=== PATIENT | male | born 1960 | race Caucasian/White ===

== ENCOUNTER 2019-04-14 08:16 | Emergency (ER) | payer BC, OTHER ==
--- NOTE | 2019-04-14 09:18 | EDM.PDOC ---
ED HPI GENERAL MEDICAL PROBLEM - General Chief Complaint: Allergic Reaction Stated Complaint: REACTION TO BUG BITE Time Seen by Provider: 04/14/19 08:45 Source of Information: Reports: Patient History Limitations: Reports: No Limitations - History of Present Illness INITIAL COMMENTS - FREE TEXT/NARRATIVE: 51-year-old male concerned that he may be having an allergic reaction to bee stings or bug bite. [place], [place] some calisthenics when he felt his lower lip becoming numb and started to swell slightly, and felt some numbness and stinging on his left buttock. 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 He has no shortness of breath, tongue swelling or mucosal swelling. He feels off, lightheaded but no specific symptoms other than the lower lip swelling and the bite on his buttock. Onset: Sudden Duration: Hour(s): (1 hour ago) Location: Reports: Face, Lower Extremity, Left Associated Symptoms: Reports: Malaise, Nausea/Vomiting, Weakness. Denies: Confusion, Chest Pain, Cough, Diaphoresis, Fever/Chills, Headaches, Shortness of Breath (Mild nausea) - Related Data Allergies Allergy/AdvReac Type Severity Reaction Status Date / Time Sulfa (Sulfonamide Allergy Rash Verified 04/14/19 08:43 Antibiotics) Home Meds: Home Meds NK [No Known Home Meds] 04/14/19 [History] Past Medical History Musculoskeletal History: Reports: Arthritis Oncologic (Cancer) History: Reports: Leukemia Social & Family History - Tobacco Use Smoking Status *Q: Never Smoker - Caffeine Use Caffeine Use: Reports: None - Recreational Drug Use Recreational Drug Use: No ED ROS ALLERGIC REACTION - Review of Systems Review Of Systems: See Below Constitutional: Reports: Malaise. Denies: Fever, Chills HEENT: Reports: Other (Lower lip is swollen) Respiratory: Denies: Shortness of Breath, Cough Cardiovascular: Denies: Chest Pain GI/Abdominal: Reports: Nausea. Denies: Abdominal Pain, Vomiting Skin: Reports: Erythema (Some erythema on the left buttock after a bee sting or bug bite) Neurological: Reports: Dizziness. Denies: Headache, Change in Speech, Gait Disturbance ED EXAM GENERAL NO PERIP PULSE - Physical Exam Exam: See Below Exam Limited By: No Limitations General Appearance: Alert, No Apparent Distress Eye Exam: Bilateral Eye: Normal Inspection Throat/Mouth: Normal Inspection, Other (Only physical finding is some very slight edema of the lower lip bilaterally, slightly worse on the left.) Respiratory/Chest: No Respiratory Distress, Lungs Clear Cardiovascular: Regular Rate, Rhythm Extremities: Normal Inspection. No: Pedal Edema Skin Exam: Other (Patient has a 3 x 5 cm macular erythematous area on the left buttock with what appears to be a very tiny central sting area) Course - Vital Signs Last Recorded V/S: Last Vital Signs Temp 97.6 F 04/14/19 08:43 Pulse 58 L 04/14/19 08:43 Resp 16 04/14/19 08:43 BP 116/77 04/14/19 08:43 Pulse Ox 97 04/14/19 08:43 - Re-Assessments/Exams Free Text/Narrative Re-Assessment/Exam: 04/14/19 09:16 Patient was observed for an additional 45 minutes and was stable, in fact improving. With his history of leukemia, and is improving status I don't think treatment is necessary but he can consider antihistamines on an outpatient basis. He can return anytime if worsening. Departure - Departure Time of Disposition: 09:22 Disposition: Home, Self-Care 01 Condition: Good Clinical Impression: Allergic reaction to insect bite - Discharge Information Instructions: Insect Bite, Adult, [id number] Referrals: PCP,None [Primary Care Provider] - Forms: ED Department Discharge Care Plan Goals: Benadryl or Zyrtec may be worthwhile if symptoms are persistent, and avoid any further exposure to possible stings. Return anytime if worsening or concerns.
== END 2019-04-14 09:22 | disposition home or self-care (01) ==
LOC: JP.ED 08:16
DX: S30.860A Insect bite (nonvenomous) of lower back and pelvis, initial encounter (principal); Z88.2 Allergy status to sulfonamides; W57.XXXA Bitten or stung by nonvenomous insect and other nonvenomous arthropods, initial encounter
CPT/HCPCS: 99281